=== PATIENT | female | born 1970 | race Caucasian/White ===

== ENCOUNTER 2023-03-21 14:37 | Inpatient (IN) | payer OTHER ==
[2023-03-21 15:09] VITALS: BMI 25.7
[2023-03-21] MEDS ORDERED: IBUPROFEN 400 MG TABLET (FP) PO PRN (17:58)
[2023-03-21] MEDS ORDERED: MAGNESIUM HYDROX 2400MG/30ML ORAL SUSPENSION 30 ML CUP PO PRN (17:58)
[2023-03-21] MEDS ORDERED: BISMUTH SUBSALICYLATE 524 MG/30 ML PO PRN (17:58)
[2023-03-21] MEDS ORDERED: DICYCLOMINE HCL 10 MG CAPSULE PO PRN (17:58)
[2023-03-21] MEDS ORDERED: ONDANSETRON *ODT* 4 MG TABLET SL PRN (17:58)
[2023-03-21] MEDS ORDERED: NICOTINE 10 MG CARTRIDGE (INHALER) IH PRN (17:58)
[2023-03-21] MEDS ORDERED: POLYETHYLENE GLYCOL (HEALTHYLAX) 3350 17 GM PACKET PO PRN (17:58)
[2023-03-21] MEDS ORDERED: NALOXONE HCL (KLOXXADO) 8 MG SPRAY NS PRN (17:58)
[2023-03-21] MEDS ORDERED: BENZOCAINE/MENTHOL (CHLORASEPTIC ) LOZENGE MM PRN (17:58)
[2023-03-21] MEDS ORDERED: LOPERAMIDE HCL 2 MG CAPSULE PO PRN (17:58)
[2023-03-21] MEDS ORDERED: IBUPROFEN 600 MG TABLET (FP) PO PRN (17:58)
[2023-03-21] MEDS ORDERED: NALOXONE HCL 0.4 MG/ML VIAL IM PRN (17:58)
[2023-03-21] MEDS ORDERED: BENZONATATE 200 MG CAPSULE PO PRN (17:58)
[2023-03-21] MEDS ORDERED: MAG HYDROX/AL HYDROX/SIMETH 30 ML UNIT-DOSE CUP PO PRN (17:58)
[2023-03-21] MEDS ORDERED: ACETAMINOPHEN 325 MG TABLET (FP) PO PRN (17:58)
[2023-03-21] MEDS ORDERED: chlordiazePOXIDE HCL 25 MG CAPSULE ONE (18:26)
[2023-03-21] MEDS: chlordiazePOXIDE HCL 25 MG CAPSULE PO PRN (18:28)
[2023-03-21] MEDS: METHOCARBAMOL 500 MG TABLET PO PRN (19:12)
[2023-03-21] MEDS: hydrOXYzine PAMOATE 25 MG CAPSULE (FP) PO PRN ×2 (19:12→22:17)
[2023-03-21] MEDS ORDERED: MELATONIN 5 MG TABLETS PO SCH (22:00)
[2023-03-21] MEDS: chlordiazePOXIDE HCL 25 MG CAPSULE PO SCH (22:17)
[2023-03-21] MEDS: THIAMINE HCL 100 MG TABLET (FP) PO SCH (22:18)
[2023-03-22] MEDS: chlordiazePOXIDE HCL 25 MG CAPSULE PO SCH ×4 (05:57→22:35)
[2023-03-22] MEDS: METHOCARBAMOL 500 MG TABLET PO PRN ×2 (05:58→22:33)
[2023-03-22] MEDS ORDERED: PHENYTOIN NA EXTENDED 100 MG CAPSULE (FP) PO ONE (09:15)
[2023-03-22] MEDS: PRENATAL VITAMINS W/ FOLIC ACID TABLET (FP) PO SCH (10:05)
[2023-03-22 11:57] LABS: HEMATOCRIT 38.6 % (32.4-45.2); HEMOGLOBIN 13.3 GM/dL (10.7-15.3); MCH 31.6 pg (25.7-33.7); MCHC 34.5 g/dl (32.0-36.0); MEAN CELL VOLUME 91.4 fl (80-96); MEAN PLT VOLUME 9.6 fl (7.5-11.1); PLATELET COUNT 274 10^3/uL (134-434); RBC 4.23 M/mm3 (3.60-5.2); RDW 14.1 % (11.6-15.6); WHITE BLOOD COUNT 5.5 K/mm3 (4.0-10.0)
[2023-03-22 11:58] LABS: POTASSIUM 3.6 mmol/L (3.5-5.1)
[2023-03-22 12:04] LABS: ALBUMIN 3.5 g/dl (3.4-5.0); BLOOD UREA NITROGEN 5.9 mg/dL (7-18)
[2023-03-22 12:07] LABS: CREATININE 0.8 mg/dL (0.55-1.3)
[2023-03-22 12:08] LABS: BILIRUBIN,TOTAL 0.7 mg/dL (0.2-1)
[2023-03-22 12:09] LABS: TOT PROT 6.9 g/dl (6.4-8.2)
[2023-03-22] MEDS: cloNIDine HCL 0.1 MG TABLET PO PRN (12:17)
[2023-03-22] MEDS: guaiFENesin 600 MG TABLET.ER (FP) PO PRN ×2 (12:17→22:39)
[2023-03-22] MEDS: PHENYTOIN NA EXTENDED 100 MG CAPSULE (FP) PO SCH ×2 (13:15→22:35)
[2023-03-22] MEDS: THIAMINE HCL 100 MG TABLET (FP) PO SCH (22:33)
[2023-03-22] MEDS: traZODone HCL 100 MG TABLET (FP) PO SCH (22:34)
[2023-03-23] MEDS: METHOCARBAMOL 500 MG TABLET PO PRN ×2 (05:26→22:15)
[2023-03-23] MEDS: chlordiazePOXIDE HCL 25 MG CAPSULE PO SCH ×4 (05:27→22:13)
[2023-03-23] MEDS: PHENYTOIN NA EXTENDED 100 MG CAPSULE (FP) PO SCH ×3 (06:10→22:15)
[2023-03-23] MEDS: guaiFENesin 600 MG TABLET.ER (FP) PO PRN ×2 (10:04→22:17)
[2023-03-23] MEDS: PRENATAL VITAMINS W/ FOLIC ACID TABLET (FP) PO SCH (10:04)
[2023-03-23] MEDS: cloNIDine HCL 0.1 MG TABLET PO PRN ×2 (10:04→17:10)
[2023-03-23] MEDS: chlordiazePOXIDE HCL 25 MG CAPSULE PO PRN (13:35)
[2023-03-23] MEDS ORDERED: PHENYTOIN NA EXTENDED 100 MG CAPSULE (FP) PO ONE (14:54)
[2023-03-23] MEDS: traZODone HCL 100 MG TABLET (FP) PO SCH (22:13)
[2023-03-23] MEDS: THIAMINE HCL 100 MG TABLET (FP) PO SCH (22:13)
[2023-03-23] MEDS: hydrOXYzine PAMOATE 25 MG CAPSULE (FP) PO PRN (22:17)
[2023-03-24] MEDS ORDERED: chlordiazePOXIDE HCL 10 MG CAPSULE PO PRN
[2023-03-24] MEDS: chlordiazePOXIDE HCL 10 MG CAPSULE PO SCH ×4 (05:50→22:18)
[2023-03-24] MEDS: PHENYTOIN NA EXTENDED 100 MG CAPSULE (FP) PO SCH ×3 (05:50→22:18)
[2023-03-24] MEDS: cloNIDine HCL 0.1 MG TABLET PO PRN ×3 (05:52→17:31)
[2023-03-24] MEDS: PRENATAL VITAMINS W/ FOLIC ACID TABLET (FP) PO SCH (10:34)
[2023-03-24] MEDS: hydrOXYzine PAMOATE 25 MG CAPSULE (FP) PO PRN ×2 (13:38→22:18)
[2023-03-24] MEDS: METHOCARBAMOL 500 MG TABLET PO PRN (17:28)
[2023-03-24] MEDS ORDERED: OXYMETAZOLINE 0.05% NASAL SOLUTION 15 ML BOTTLE NS PRN (19:35)
[2023-03-24] MEDS: guaiFENesin 200 MG/10 ML 10 ML UNIT-DOSE CUPS PO PRN (19:44)
[2023-03-24] MEDS: THIAMINE HCL 100 MG TABLET (FP) PO SCH (22:18)
[2023-03-24] MEDS: traZODone HCL 100 MG TABLET (FP) PO SCH (22:18)
[2023-03-25] MEDS: guaiFENesin 200 MG/10 ML 10 ML UNIT-DOSE CUPS PO PRN ×2 (02:07→22:18)
[2023-03-25] MEDS: cloNIDine HCL 0.1 MG TABLET PO PRN ×3 (02:07→22:17)
[2023-03-25] MEDS: chlordiazePOXIDE HCL 10 MG CAPSULE PO SCH ×2 (05:52→17:13)
[2023-03-25] MEDS: PHENYTOIN NA EXTENDED 100 MG CAPSULE (FP) PO SCH ×3 (05:54→22:17)
[2023-03-25] MEDS: METHOCARBAMOL 500 MG TABLET PO PRN ×3 (05:56→22:17)
[2023-03-25] MEDS: PRENATAL VITAMINS W/ FOLIC ACID TABLET (FP) PO SCH (10:23)
[2023-03-25] MEDS: hydrOXYzine PAMOATE 25 MG CAPSULE (FP) PO PRN ×2 (10:24→17:13)
[2023-03-25] MEDS: traZODone HCL 100 MG TABLET (FP) PO SCH (22:17)
[2023-03-25] MEDS: THIAMINE HCL 100 MG TABLET (FP) PO SCH (22:17)
[2023-03-26] MEDS ORDERED: chlordiazePOXIDE HCL 10 MG CAPSULE PO ONE (05:00)
[2023-03-26] MEDS: PHENYTOIN NA EXTENDED 100 MG CAPSULE (FP) PO SCH ×2 (05:11→13:47)
[2023-03-26] MEDS: hydrOXYzine PAMOATE 25 MG CAPSULE (FP) PO PRN ×2 (05:11→13:48)
[2023-03-26] MEDS: cloNIDine HCL 0.1 MG TABLET PO PRN ×2 (09:39→17:15)
[2023-03-26] MEDS: PRENATAL VITAMINS W/ FOLIC ACID TABLET (FP) PO SCH (09:40)
[2023-03-26] MEDS: METHOCARBAMOL 500 MG TABLET PO PRN (13:47)
[2023-03-26 14:02] VITALS: RESP 18; TEMP 97.3
[2023-03-26 18:19] VITALS: BP 114/71; PULSE 97
== END 2023-03-26 18:33 | disposition other institution (70) | DRG 774 ==
LOC: YASAS 14:37 → Y6N 18:03
PROVIDERS: ADMIT Allergy & Immunology; ATTEND Surgery
PROC: HZ2ZZZZ Detoxification Services for Substance Abuse Treatment (ICD-10-PCS; principal; 2023-03-21)
DX: F10.230 Alcohol dependence with withdrawal, uncomplicated (principal); F14.10 Cocaine abuse, uncomplicated; F12.10 Cannabis abuse, uncomplicated; F19.282 Other psychoactive substance dependence with psychoactive substance-induced sleep disorder; F19.280 Other psychoactive substance dependence with psychoactive substance-induced anxiety disorder; F19.24 Other psychoactive substance dependence with psychoactive substance-induced mood disorder; F32.A Depression, unspecified; F41.8 Other specified anxiety disorders; G40.909 Epilepsy, unspecified, not intractable, without status epilepticus; I10 Essential (primary) hypertension; Z91.410 Personal history of adult physical and sexual abuse; Z87.891 Personal history of nicotine dependence
CPT/HCPCS: 36415; 80053; 80185; 81025; 85027; 86780; 87635

== ENCOUNTER 2023-03-26 19:29 | Inpatient (IN) | payer OTHER ==
[~2023-03-26 19:29] MED LIST: BENZOCAINE/MENTHOL (CHLORASEPTIC ) LOZENGE MM PRN; BENZONATATE 200 MG CAPSULE PO PRN; LOPERAMIDE HCL 2 MG CAPSULE PO PRN; MAG HYDROX/AL HYDROX/SIMETH 30 ML UNIT-DOSE CUP PO PRN; MAGNESIUM HYDROX 2400MG/30ML ORAL SUSPENSION 30 ML CUP PO PRN; POLYETHYLENE GLYCOL (HEALTHYLAX) 3350 17 GM PACKET PO PRN; guaiFENesin 600 MG TABLET.ER (FP) PO PRN
[2023-03-26] MEDS: PHENYTOIN NA EXTENDED 100 MG CAPSULE (FP) PO SCH ×2 (19:54→21:39)
[2023-03-26] MEDS: METHOCARBAMOL 500 MG TABLET PO PRN (21:39)
[2023-03-26] MEDS: MELATONIN 5 MG TABLETS PO SCH (21:39)
[2023-03-26] MEDS: traZODone HCL 100 MG TABLET (FP) PO SCH (21:39)
[2023-03-26] MEDS: hydrOXYzine PAMOATE 25 MG CAPSULE (FP) PO PRN (21:40)
[2023-03-26] MEDS: THIAMINE HCL 100 MG TABLET (FP) PO SCH (21:40)
[2023-03-27] MEDS: PHENYTOIN NA EXTENDED 100 MG CAPSULE (FP) PO SCH ×3 (06:30→21:21)
[2023-03-27] MEDS: IBUPROFEN 400 MG TABLET (FP) PO PRN ×2 (06:30→14:22)
[2023-03-27] MEDS: hydrOXYzine PAMOATE 25 MG CAPSULE (FP) PO PRN (06:30)
[2023-03-27] MEDS: PRENATAL VITAMINS W/ FOLIC ACID TABLET (FP) PO SCH (10:09)
[2023-03-27] MEDS ORDERED: GABAPENTIN 100 MG CAPSULE PO ONE (10:30)
[2023-03-27] MEDS: hydrOXYzine PAMOATE 50 MG CAPSULE (FP) PO PRN ×2 (10:31→17:45)
[2023-03-27] MEDS ORDERED: FLU VACC QS2022-23(6MOS UP)/PF 60 MCG/0.5 ML SYRINGE IM ONE (12:00)
[2023-03-27] MEDS ORDERED: PNEUMOC 20-VAL CONJ-DIP CRM/PF 0.5 ML SYRINGE IM ONE (12:09)
[2023-03-27] MEDS ORDERED: ALBUTEROL SO4 HFA INHALER IH PRN (13:14)
[2023-03-27] MEDS ORDERED: AZITHROMYCIN 250 MG TABLET PO ONE (13:45)
[2023-03-27] MEDS: GABAPENTIN 100 MG CAPSULE PO SCH ×2 (14:20→21:21)
[2023-03-27] MEDS: THIAMINE HCL 100 MG TABLET (FP) PO SCH (21:21)
[2023-03-27] MEDS: traZODone HCL 100 MG TABLET (FP) PO SCH (21:21)
[2023-03-27] MEDS: MELATONIN 5 MG TABLETS PO SCH (21:21)
[2023-03-28] MEDS: GABAPENTIN 100 MG CAPSULE PO SCH ×3 (06:33→21:10)
[2023-03-28] MEDS: PHENYTOIN NA EXTENDED 100 MG CAPSULE (FP) PO SCH ×3 (06:33→21:10)
[2023-03-28] MEDS: IBUPROFEN 400 MG TABLET (FP) PO PRN (06:35)
[2023-03-28] MEDS: hydrOXYzine PAMOATE 50 MG CAPSULE (FP) PO PRN ×2 (08:43→16:41)
[2023-03-28] MEDS: AZITHROMYCIN 250 MG TABLET PO SCH (09:50)
[2023-03-28] MEDS: PRENATAL VITAMINS W/ FOLIC ACID TABLET (FP) PO SCH (09:50)
[2023-03-28 11:37] LABS: BASO % 0.5 % (0-2.0); EOS % 3.8 % (0-4.5); HEMATOCRIT 37.6 % (32.4-45.2); HEMOGLOBIN 12.9 GM/dL (10.7-15.3); LYMPH % 16.2 % (8-40); MCH 31.7 pg (25.7-33.7); MCHC 34.4 g/dl (32.0-36.0); MEAN PLT VOLUME 11.1 fl (7.5-11.1); MONO % 10.4 % (3.8-10.2); NEUT % 69.1 % (42.8-82.8); PLATELET COUNT 149 10^3/uL (134-434); RBC 4.08 M/mm3 (3.60-5.2); WHITE BLOOD COUNT 9.1 K/mm3 (4.0-10.0)
[2023-03-28 13:01] LABS: POTASSIUM 4.3 mmol/L (3.5-5.1)
[2023-03-28 13:06] LABS: CALCIUM 9.3 mg/dL (8.5-10.1)
[2023-03-28 13:07] LABS: ALBUMIN 3.8 g/dl (3.4-5.0); BLOOD UREA NITROGEN 10.7 mg/dL (7-18)
[2023-03-28 13:09] LABS: CREATININE 0.9 mg/dL (0.55-1.3)
[2023-03-28 13:11] LABS: BILIRUBIN,TOTAL 0.2 mg/dL (0.2-1); TOT PROT 7.4 g/dl (6.4-8.2)
[2023-03-28] MEDS: COLLOIDAL OATMEAL 1 BAR EACH TP PRN (14:36)
[2023-03-28] MEDS: AMMONIUM LACTATE 12% LOTION 225 GM BOTTLE TP PRN (14:37)
[2023-03-28] MEDS: LACTULOSE 20 GM/30 ML UDC (FOR ORAL USE ONLY) PO SCH ×2 (16:42→21:09)
[2023-03-28] MEDS: MELATONIN 5 MG TABLETS PO SCH (21:10)
[2023-03-28] MEDS: THIAMINE HCL 100 MG TABLET (FP) PO SCH (21:10)
[2023-03-28] MEDS: traZODone HCL 100 MG TABLET (FP) PO SCH (21:10)
[2023-03-29] MEDS: PHENYTOIN NA EXTENDED 100 MG CAPSULE (FP) PO SCH ×3 (06:18→21:34)
[2023-03-29] MEDS: GABAPENTIN 100 MG CAPSULE PO SCH ×3 (06:19→21:34)
[2023-03-29] MEDS: LACTULOSE 20 GM/30 ML UDC (FOR ORAL USE ONLY) PO SCH ×3 (06:19→21:34)
[2023-03-29] MEDS: AZITHROMYCIN 250 MG TABLET PO SCH (09:17)
[2023-03-29] MEDS: PRENATAL VITAMINS W/ FOLIC ACID TABLET (FP) PO SCH (09:17)
[2023-03-29] MEDS: hydrOXYzine PAMOATE 50 MG CAPSULE (FP) PO PRN (09:19)
[2023-03-29] MEDS: METHOCARBAMOL 500 MG TABLET PO PRN (09:19)
[2023-03-29] MEDS: traZODone HCL 100 MG TABLET (FP) PO SCH (21:34)
[2023-03-29] MEDS: MELATONIN 5 MG TABLETS PO SCH (21:34)
[2023-03-29] MEDS: THIAMINE HCL 100 MG TABLET (FP) PO SCH (21:34)
[2023-03-30] MEDS: GABAPENTIN 100 MG CAPSULE PO SCH ×2 (06:09→14:27)
[2023-03-30] MEDS: LACTULOSE 20 GM/30 ML UDC (FOR ORAL USE ONLY) PO SCH ×3 (06:09→21:41)
[2023-03-30] MEDS: PHENYTOIN NA EXTENDED 100 MG CAPSULE (FP) PO SCH ×3 (06:10→21:21)
[2023-03-30] MEDS: IBUPROFEN 600 MG TABLET (FP) PO PRN (06:11)
[2023-03-30] MEDS: METHOCARBAMOL 500 MG TABLET PO PRN ×2 (06:11→14:29)
[2023-03-30] MEDS: PRENATAL VITAMINS W/ FOLIC ACID TABLET (FP) PO SCH (09:55)
[2023-03-30] MEDS: hydrOXYzine PAMOATE 50 MG CAPSULE (FP) PO PRN (09:57)
[2023-03-30] MEDS: AZITHROMYCIN 250 MG TABLET PO SCH (09:57)
[2023-03-30] MEDS: GABAPENTIN 300 MG CAPSULE PO SCH (21:21)
[2023-03-30] MEDS: MELATONIN 5 MG TABLETS PO SCH (21:21)
[2023-03-30] MEDS: traZODone HCL 100 MG TABLET (FP) PO SCH (21:21)
[2023-03-30] MEDS: THIAMINE HCL 100 MG TABLET (FP) PO SCH (21:21)
[2023-03-31] MEDS: METHOCARBAMOL 500 MG TABLET PO PRN ×2 (06:14→13:26)
[2023-03-31] MEDS: LACTULOSE 20 GM/30 ML UDC (FOR ORAL USE ONLY) PO SCH ×3 (06:14→21:21)
[2023-03-31] MEDS: PHENYTOIN NA EXTENDED 100 MG CAPSULE (FP) PO SCH ×3 (06:15→21:22)
[2023-03-31] MEDS: GABAPENTIN 300 MG CAPSULE PO SCH ×3 (06:15→21:22)
[2023-03-31] MEDS: AZITHROMYCIN 250 MG TABLET PO SCH (09:43)
[2023-03-31] MEDS: PRENATAL VITAMINS W/ FOLIC ACID TABLET (FP) PO SCH (09:43)
[2023-03-31] MEDS: hydrOXYzine PAMOATE 50 MG CAPSULE (FP) PO PRN (09:44)
[2023-03-31] MEDS: MELATONIN 5 MG TABLETS PO SCH (21:22)
[2023-03-31] MEDS: traZODone HCL 100 MG TABLET (FP) PO SCH (21:22)
[2023-03-31] MEDS: THIAMINE HCL 100 MG TABLET (FP) PO SCH (22:29)
[2023-04-01] MEDS: LACTULOSE 20 GM/30 ML UDC (FOR ORAL USE ONLY) PO SCH ×3 (06:16→22:03)
[2023-04-01] MEDS: PHENYTOIN NA EXTENDED 100 MG CAPSULE (FP) PO SCH ×3 (06:16→21:56)
[2023-04-01] MEDS: METHOCARBAMOL 500 MG TABLET PO PRN (06:16)
[2023-04-01] MEDS: GABAPENTIN 300 MG CAPSULE PO SCH ×3 (06:16→21:56)
[2023-04-01] MEDS: AMMONIUM LACTATE 12% LOTION 225 GM BOTTLE TP PRN (06:18)
[2023-04-01] MEDS: COLLOIDAL OATMEAL 1 BAR EACH TP PRN (09:41)
[2023-04-01] MEDS: PRENATAL VITAMINS W/ FOLIC ACID TABLET (FP) PO SCH (09:41)
[2023-04-01] MEDS: hydrOXYzine PAMOATE 50 MG CAPSULE (FP) PO PRN ×2 (09:43→21:57)
[2023-04-01] MEDS: IBUPROFEN 400 MG TABLET (FP) PO PRN (09:43)
[2023-04-01] MEDS: IBUPROFEN 600 MG TABLET (FP) PO PRN (16:49)
[2023-04-01] MEDS: MELATONIN 5 MG TABLETS PO SCH (21:56)
[2023-04-01] MEDS: THIAMINE HCL 100 MG TABLET (FP) PO SCH (21:56)
[2023-04-01] MEDS: traZODone HCL 100 MG TABLET (FP) PO SCH (21:56)
[2023-04-02] MEDS: hydrOXYzine PAMOATE 50 MG CAPSULE (FP) PO PRN ×2 (06:07→13:42)
[2023-04-02] MEDS: LACTULOSE 20 GM/30 ML UDC (FOR ORAL USE ONLY) PO SCH ×3 (06:07→21:44)
[2023-04-02] MEDS: GABAPENTIN 300 MG CAPSULE PO SCH ×3 (06:08→21:30)
[2023-04-02] MEDS: PHENYTOIN NA EXTENDED 100 MG CAPSULE (FP) PO SCH ×3 (06:08→21:30)
[2023-04-02] MEDS: PRENATAL VITAMINS W/ FOLIC ACID TABLET (FP) PO SCH (09:55)
[2023-04-02] MEDS: MELATONIN 5 MG TABLETS PO SCH (21:30)
[2023-04-02] MEDS: THIAMINE HCL 100 MG TABLET (FP) PO SCH (21:30)
[2023-04-02] MEDS: traZODone HCL 100 MG TABLET (FP) PO SCH (21:30)
[2023-04-02] MEDS: METHOCARBAMOL 500 MG TABLET PO PRN (21:32)
[2023-04-03] MEDS: METHOCARBAMOL 500 MG TABLET PO PRN ×3 (06:56→21:35)
[2023-04-03] MEDS: GABAPENTIN 300 MG CAPSULE PO SCH ×3 (06:57→21:35)
[2023-04-03] MEDS: PHENYTOIN NA EXTENDED 100 MG CAPSULE (FP) PO SCH ×3 (06:57→21:35)
[2023-04-03] MEDS: LACTULOSE 20 GM/30 ML UDC (FOR ORAL USE ONLY) PO SCH ×3 (06:57→21:36)
[2023-04-03] MEDS: hydrOXYzine PAMOATE 50 MG CAPSULE (FP) PO PRN (10:18)
[2023-04-03] MEDS: PRENATAL VITAMINS W/ FOLIC ACID TABLET (FP) PO SCH (10:18)
[2023-04-03] MEDS: traZODone HCL 100 MG TABLET (FP) PO SCH (21:35)
[2023-04-03] MEDS: MELATONIN 5 MG TABLETS PO SCH (21:36)
[2023-04-03] MEDS: THIAMINE HCL 100 MG TABLET (FP) PO SCH (21:36)
[2023-04-04] MEDS: METHOCARBAMOL 500 MG TABLET PO PRN ×2 (06:04→21:54)
[2023-04-04] MEDS: LACTULOSE 20 GM/30 ML UDC (FOR ORAL USE ONLY) PO SCH ×3 (06:04→21:55)
[2023-04-04] MEDS: PHENYTOIN NA EXTENDED 100 MG CAPSULE (FP) PO SCH ×3 (06:05→21:55)
[2023-04-04] MEDS: GABAPENTIN 300 MG CAPSULE PO SCH ×3 (06:05→21:55)
[2023-04-04] MEDS: hydrOXYzine PAMOATE 50 MG CAPSULE (FP) PO PRN ×2 (07:02→15:47)
[2023-04-04] MEDS: PRENATAL VITAMINS W/ FOLIC ACID TABLET (FP) PO SCH (09:46)
[2023-04-04 11:27] LABS: INR 1.03 (0.83-1.09); PROTHROMBIN TIME (PATIENT) 11.9 SEC (9.7-13.0)
[2023-04-04 11:28] LABS: POTASSIUM 4.5 mmol/L (3.5-5.1)
[2023-04-04 11:34] LABS: ALBUMIN 3.7 g/dl (3.4-5.0); BLOOD UREA NITROGEN 8.7 mg/dL (7-18)
[2023-04-04 11:36] LABS: CALCIUM 9.5 mg/dL (8.5-10.1)
[2023-04-04 11:37] LABS: CREATININE 0.9 mg/dL (0.55-1.3)
[2023-04-04 11:38] LABS: TOT PROT 7.3 g/dl (6.4-8.2)
[2023-04-04 11:39] LABS: BILIRUBIN,TOTAL 0.3 mg/dL (0.2-1)
[2023-04-04] MEDS ORDERED: PHENYTOIN NA EXTENDED 100 MG CAPSULE (FP) PO ONE (15:11)
[2023-04-04] MEDS: MELATONIN 5 MG TABLETS PO SCH (21:54)
[2023-04-04] MEDS: THIAMINE HCL 100 MG TABLET (FP) PO SCH (21:55)
[2023-04-04] MEDS: traZODone HCL 100 MG TABLET (FP) PO SCH (21:55)
[2023-04-05] MEDS: GABAPENTIN 300 MG CAPSULE PO SCH ×3 (06:45→21:38)
[2023-04-05] MEDS: METHOCARBAMOL 500 MG TABLET PO PRN ×2 (06:45→17:04)
[2023-04-05] MEDS: PHENYTOIN NA EXTENDED 100 MG CAPSULE (FP) PO SCH ×3 (06:45→21:39)
[2023-04-05] MEDS: LACTULOSE 20 GM/30 ML UDC (FOR ORAL USE ONLY) PO SCH ×3 (06:45→21:38)
[2023-04-05] MEDS: PRENATAL VITAMINS W/ FOLIC ACID TABLET (FP) PO SCH (09:43)
[2023-04-05] MEDS: hydrOXYzine PAMOATE 50 MG CAPSULE (FP) PO PRN (13:47)
[2023-04-05] MEDS: MELATONIN 5 MG TABLETS PO SCH (21:38)
[2023-04-05] MEDS: traZODone HCL 100 MG TABLET (FP) PO SCH (21:39)
[2023-04-05] MEDS: THIAMINE HCL 100 MG TABLET (FP) PO SCH (21:39)
[2023-04-06] MEDS: METHOCARBAMOL 500 MG TABLET PO PRN ×2 (06:35→15:50)
[2023-04-06] MEDS: hydrOXYzine PAMOATE 50 MG CAPSULE (FP) PO PRN ×2 (06:35→14:32)
[2023-04-06] MEDS: GABAPENTIN 300 MG CAPSULE PO SCH ×3 (06:35→21:27)
[2023-04-06] MEDS: PHENYTOIN NA EXTENDED 100 MG CAPSULE (FP) PO SCH ×3 (06:35→21:27)
[2023-04-06] MEDS: LACTULOSE 20 GM/30 ML UDC (FOR ORAL USE ONLY) PO SCH ×3 (06:36→21:27)
[2023-04-06 07:33] VITALS: RESP 18
[2023-04-06] MEDS: PRENATAL VITAMINS W/ FOLIC ACID TABLET (FP) PO SCH (09:53)
[2023-04-06] MEDS: MELATONIN 5 MG TABLETS PO SCH (21:27)
[2023-04-06] MEDS: traZODone HCL 100 MG TABLET (FP) PO SCH (21:27)
[2023-04-06] MEDS: THIAMINE HCL 100 MG TABLET (FP) PO SCH (21:27)
[2023-04-07] MEDS: hydrOXYzine PAMOATE 50 MG CAPSULE (FP) PO PRN ×2 (06:35→13:13)
[2023-04-07] MEDS: METHOCARBAMOL 500 MG TABLET PO PRN (06:35)
[2023-04-07] MEDS: GABAPENTIN 300 MG CAPSULE PO SCH ×3 (06:35→21:41)
[2023-04-07] MEDS: PHENYTOIN NA EXTENDED 100 MG CAPSULE (FP) PO SCH ×3 (06:35→21:14)
[2023-04-07] MEDS: LACTULOSE 20 GM/30 ML UDC (FOR ORAL USE ONLY) PO SCH ×3 (06:36→21:15)
[2023-04-07] MEDS: PRENATAL VITAMINS W/ FOLIC ACID TABLET (FP) PO SCH (09:58)
[2023-04-07] MEDS: MELATONIN 5 MG TABLETS PO SCH (21:14)
[2023-04-07] MEDS: traZODone HCL 100 MG TABLET (FP) PO SCH (21:14)
[2023-04-07] MEDS: THIAMINE HCL 100 MG TABLET (FP) PO SCH (21:14)
[2023-04-08] MEDS: hydrOXYzine PAMOATE 50 MG CAPSULE (FP) PO PRN ×2 (06:16→14:35)
[2023-04-08] MEDS: METHOCARBAMOL 500 MG TABLET PO PRN ×3 (06:16→21:26)
[2023-04-08] MEDS: GABAPENTIN 300 MG CAPSULE PO SCH ×3 (06:16→21:26)
[2023-04-08] MEDS: PHENYTOIN NA EXTENDED 100 MG CAPSULE (FP) PO SCH ×3 (06:16→21:26)
[2023-04-08] MEDS: LACTULOSE 20 GM/30 ML UDC (FOR ORAL USE ONLY) PO SCH ×3 (06:16→21:52)
[2023-04-08] MEDS: PRENATAL VITAMINS W/ FOLIC ACID TABLET (FP) PO SCH (09:47)
[2023-04-08] MEDS: THIAMINE HCL 100 MG TABLET (FP) PO SCH (21:26)
[2023-04-08] MEDS: traZODone HCL 100 MG TABLET (FP) PO SCH (21:26)
[2023-04-08] MEDS: MELATONIN 5 MG TABLETS PO SCH (21:26)
[2023-04-09] MEDS: GABAPENTIN 300 MG CAPSULE PO SCH ×3 (06:05→21:31)
[2023-04-09] MEDS: LACTULOSE 20 GM/30 ML UDC (FOR ORAL USE ONLY) PO SCH ×3 (06:05→21:32)
[2023-04-09] MEDS: PHENYTOIN NA EXTENDED 100 MG CAPSULE (FP) PO SCH ×3 (06:05→21:31)
[2023-04-09] MEDS: hydrOXYzine PAMOATE 50 MG CAPSULE (FP) PO PRN ×2 (06:05→14:15)
[2023-04-09] MEDS: METHOCARBAMOL 500 MG TABLET PO PRN ×2 (06:05→17:40)
[2023-04-09] MEDS: PRENATAL VITAMINS W/ FOLIC ACID TABLET (FP) PO SCH (09:57)
[2023-04-09] MEDS: COLLOIDAL OATMEAL 1 BAR EACH TP PRN (13:12)
[2023-04-09] MEDS: THIAMINE HCL 100 MG TABLET (FP) PO SCH (21:31)
[2023-04-09] MEDS: MELATONIN 5 MG TABLETS PO SCH (21:31)
[2023-04-09] MEDS: traZODone HCL 100 MG TABLET (FP) PO SCH (21:31)
[2023-04-10] MEDS: PHENYTOIN NA EXTENDED 100 MG CAPSULE (FP) PO SCH (06:47)
[2023-04-10] MEDS: hydrOXYzine PAMOATE 50 MG CAPSULE (FP) PO PRN (06:47)
[2023-04-10] MEDS: LACTULOSE 20 GM/30 ML UDC (FOR ORAL USE ONLY) PO SCH (06:47)
[2023-04-10] MEDS: GABAPENTIN 300 MG CAPSULE PO SCH (06:48)
[2023-04-10] MEDS: METHOCARBAMOL 500 MG TABLET PO PRN (06:48)
[2023-04-10 07:17] VITALS: BP 122/71; PULSE 81; TEMP 97.5
[2023-04-10] MEDS: PRENATAL VITAMINS W/ FOLIC ACID TABLET (FP) PO SCH (10:01)
== END 2023-04-10 10:20 | disposition other institution (70) | DRG 772 ==
LOC: YASAS 19:29 → Y5N 19:30
PROVIDERS: ADMIT Allergy & Immunology; ATTEND Psychiatry & Neurology Pain Medicine
PROC: HZ42ZZZ Group Counseling for Substance Abuse Treatment, Cognitive-Behavioral (ICD-10-PCS; principal; 2023-03-26)
DX: F10.20 Alcohol dependence, uncomplicated (principal); F14.20 Cocaine dependence, uncomplicated; F12.20 Cannabis dependence, uncomplicated; F41.9 Anxiety disorder, unspecified; F32.A Depression, unspecified; E72.20 Disorder of urea cycle metabolism, unspecified; I10 Essential (primary) hypertension; R56.9 Unspecified convulsions; M54.50 Low back pain, unspecified; G89.29 Other chronic pain; R06.2 Wheezing; R05.9 Cough, unspecified; Z87.891 Personal history of nicotine dependence
CPT/HCPCS: 36415; 71046-TC-FY; 80053; 80185; 82140; 85025; 85610; 90677; G0008; Q2036

== ENCOUNTER 2023-11-26 17:49 | Inpatient (IN) | payer OTHER ==
[2023-11-26 19:03] VITALS: BMI 24.7
[2023-11-26] MEDS ORDERED: P-EPHED 60MG/TRIPROLIDI 2.5MG TABLET PO PRN (22:32)
[2023-11-26] MEDS ORDERED: IBUPROFEN 600 MG TABLET (FP) PO PRN (22:32)
[2023-11-26] MEDS ORDERED: NICOTINE POLACRILEX 2 MG GUM BUC PRN (22:32)
[2023-11-26] MEDS ORDERED: POLYETHYLENE GLYCOL (HEALTHYLAX) 3350 17 GM PACKET PO PRN (22:32)
[2023-11-26] MEDS ORDERED: guaiFENesin 600 MG TABLET.ER (FP) PO PRN (22:32)
[2023-11-26] MEDS ORDERED: ACETAMINOPHEN 325 MG TABLET (FP) PO PRN (22:32)
[2023-11-26] MEDS ORDERED: MAG HYDROX/AL HYDROX/SIMETH 30 ML UNIT-DOSE CUP PO PRN (22:32)
[2023-11-26] MEDS ORDERED: ONDANSETRON *ODT* 4 MG TABLET SL PRN (22:32)
[2023-11-26] MEDS ORDERED: IBUPROFEN 400 MG TABLET (FP) PO PRN (22:32)
[2023-11-26] MEDS ORDERED: BISMUTH SUBSALICYLATE 524 MG/30 ML PO PRN (22:32)
[2023-11-26] MEDS ORDERED: MAGNESIUM HYDROX 2400MG/30ML ORAL SUSPENSION 30 ML CUP PO PRN (22:32)
[2023-11-26] MEDS ORDERED: LOPERAMIDE HCL 2 MG CAPSULE PO PRN (22:32)
[2023-11-26] MEDS ORDERED: DICYCLOMINE HCL 10 MG CAPSULE PO PRN (22:32)
[2023-11-26] MEDS ORDERED: BENZOCAINE/MENTHOL (CHLORASEPTIC ) LOZENGE MM PRN (22:32)
[2023-11-26] MEDS ORDERED: BENZONATATE 200 MG CAPSULE PO PRN (22:32)
[2023-11-26] MEDS: diazePAM 5 MG TABLET PO PRN (23:57)
[2023-11-26] MEDS: levETIRAcetam 500 MG TABLET (FP) PO SCH (23:58)
[2023-11-27] MEDS: diazePAM 5 MG TABLET PO SCH (05:23)
[2023-11-27] MEDS: PRENATAL VITAMINS W/ FOLIC ACID TABLET (FP) PO SCH (10:11)
[2023-11-27] MEDS: FOLIC ACID 1 MG TABLET (FP) PO SCH (10:14)
[2023-11-27] MEDS: hydrOXYzine PAMOATE 25 MG CAPSULE (FP) PO PRN (10:14)
[2023-11-27] MEDS: METHOCARBAMOL 500 MG TABLET PO PRN (10:14)
[2023-11-27] MEDS: QUEtiapine FUMARATE 200 MG TABLET PO ONE (12:42)
[2023-11-27] MEDS: QUEtiapine FUMARATE 200 MG TABLET PO SCH (12:44)
[2023-11-27] MEDS: traZODone HCL 100 MG TABLET (FP) PO SCH (21:58)
[2023-11-27] MEDS: THIAMINE HCL 100 MG TABLET (FP) PO SCH (21:59)
[2023-11-27] MEDS ORDERED: MELATONIN 5 MG TABLETS PO SCH (22:00)
[2023-11-28] MEDS: diazePAM 5 MG TABLET PO ONE (05:20)
[2023-11-28 09:57] VITALS: RESP 20
[2023-11-28 13:36] VITALS: BP 122/74; PULSE 116; TEMP 97.5
== END 2023-11-28 15:00 | disposition other institution (70) | DRG 774 ==
LOC: YASAS 17:49 → Y6N 23:00
PROVIDERS: ADMIT Allergy & Immunology; ATTEND Surgery
PROC: HZ2ZZZZ Detoxification Services for Substance Abuse Treatment (ICD-10-PCS; principal; 2023-11-26)
DX: F10.230 Alcohol dependence with withdrawal, uncomplicated (principal); F14.20 Cocaine dependence, uncomplicated; F25.1 Schizoaffective disorder, depressive type; F19.280 Other psychoactive substance dependence with psychoactive substance-induced anxiety disorder; F19.282 Other psychoactive substance dependence with psychoactive substance-induced sleep disorder; F19.24 Other psychoactive substance dependence with psychoactive substance-induced mood disorder; F33.1 Major depressive disorder, recurrent, moderate; G40.909 Epilepsy, unspecified, not intractable, without status epilepticus; I10 Essential (primary) hypertension; M54.50 Low back pain, unspecified; G89.29 Other chronic pain; Z56.0 Unemployment, unspecified; Z59.00 Homelessness unspecified
CPT/HCPCS: 81025; 87635; 93005; 93010

== ENCOUNTER 2023-11-28 15:18 | Inpatient (IN) | payer OTHER ==
[2023-11-28] MEDS ORDERED: IBUPROFEN 600 MG TABLET (FP) PO PRN (16:01)
[2023-11-28] MEDS ORDERED: LOPERAMIDE HCL 2 MG CAPSULE PO PRN (16:01)
[2023-11-28] MEDS ORDERED: guaiFENesin 600 MG TABLET.ER (FP) PO PRN (16:01)
[2023-11-28] MEDS ORDERED: NALOXONE HCL (KLOXXADO) 8 MG SPRAY NS PRN (16:01)
[2023-11-28] MEDS ORDERED: AMMONIUM LACTATE 12% LOTION 225 GM BOTTLE TP PRN (16:01)
[2023-11-28] MEDS ORDERED: BENZOCAINE/MENTHOL (CHLORASEPTIC ) LOZENGE MM PRN (16:01)
[2023-11-28] MEDS ORDERED: NALOXONE HCL 0.4 MG/ML VIAL IVPUSH PRN (16:01)
[2023-11-28] MEDS ORDERED: BENZONATATE 200 MG CAPSULE PO PRN (16:01)
[2023-11-28] MEDS ORDERED: ACETAMINOPHEN 325 MG TABLET (FP) PO PRN (16:01)
[2023-11-28] MEDS ORDERED: IBUPROFEN 400 MG TABLET (FP) PO PRN (16:01)
[2023-11-28] MEDS: THIAMINE HCL 100 MG TABLET (FP) PO SCH (21:19)
[2023-11-28] MEDS: levETIRAcetam 500 MG TABLET (FP) PO SCH (21:19)
[2023-11-28] MEDS: GABAPENTIN 300 MG CAPSULE PO SCH (21:19)
[2023-11-28] MEDS: MELATONIN 5 MG TABLETS PO SCH (21:19)
[2023-11-29] MEDS: hydrOXYzine PAMOATE 25 MG CAPSULE (FP) PO PRN (05:44)
[2023-11-29] MEDS: DIVALPROEX SODIUM 500 MG TABLET E.C. PO SCH (09:48)
[2023-11-29] MEDS: PRENATAL VITAMINS W/ FOLIC ACID TABLET (FP) PO SCH (09:48)
[2023-11-29] MEDS: BACLOFEN 10 MG TABLET (FP) PO PRN (09:49)
[2023-11-29] MEDS: PNEUMOC 20-VAL CONJ-DIP CRM/PF 0.5 ML SYRINGE IM ONE (09:53)
[2023-11-29] MEDS ORDERED: GABAPENTIN 300 MG CAPSULE PO SCH (10:00)
[2023-11-29] MEDS: QUEtiapine FUMARATE 200 MG TABLET PO SCH (11:37)
[2023-11-30 07:09] VITALS: RESP 18
[2023-11-30] MEDS: LACTULOSE 20 GM/30 ML UDC (FOR ORAL USE ONLY) PO SCH (13:17)
[2023-12-01] MEDS: FLU VACCINE (FLULAVAL) PF 60 MCG/0.5 ML SYRINGE 2023-2024 IM ONE (11:08)
[2023-12-01] MEDS ORDERED: PNEUMOC 20-VAL CONJ-DIP CRM/PF 0.5 ML SYRINGE IM ONE (12:00)
[2023-12-01 13:42] LABS: ALBUMIN 3.4 g/dl (3.4-5.0); CALCIUM 9.8 mg/dL (8.5-10.1)
[2023-12-01 13:43] LABS: BLOOD UREA NITROGEN 15.8 mg/dL (7-18)
[2023-12-01 13:45] LABS: CREATININE 0.9 mg/dL (0.55-1.3)
[2023-12-01 13:47] LABS: BILIRUBIN,TOTAL 0.2 mg/dL (0.2-1); TOT PROT 6.9 g/dl (6.4-8.2)
[2023-12-01 13:49] LABS: INR 0.88 (0.83-1.09); PROTHROMBIN TIME (PATIENT) 10.2 SEC (9.7-13.0)
[2023-12-01 13:54] LABS: HEMATOCRIT 36.2 % (32.4-45.2); MCH 28.9 pg (25.7-33.7); MCHC 33.2 g/dl (32.0-36.0); MEAN CELL VOLUME 87.1 fl (80-96); MEAN PLT VOLUME 9.7 fl (7.5-11.1); PLATELET COUNT 280 10^3/uL (134-434); RBC 4.16 M/mm3 (3.60-5.2); RDW 15.7 % (11.6-15.6); WHITE BLOOD COUNT 12.5 K/mm3 (4.0-10.0)
[2023-12-01 14:22] LABS: ANISOCYTOSIS 0; MACROCYTOSIS 0
[2023-12-01] MEDS: POLYETHYLENE GLYCOL (HEALTHYLAX) 3350 17 GM PACKET PO PRN (17:37)
[2023-12-03] MEDS: MAGNESIUM HYDROX 2400MG/30ML ORAL SUSPENSION 30 ML CUP PO PRN (13:10)
[2023-12-03] MEDS ORDERED: PNEUMOCOCCAL 23 VACCINE 0.5 ML VIAL IM ONE (15:13)
[2023-12-03] MEDS: DOCUSATE SODIUM 100 MG CAPSULE (FP) PO SCH (21:35)
[2023-12-04] MEDS: MAG HYDROX/AL HYDROX/SIMETH 30 ML UNIT-DOSE CUP PO PRN (20:16)
[2023-12-05 07:14] VITALS: BP 111/60; PULSE 87; TEMP 97.6
== END 2023-12-05 10:30 | disposition home or self-care (01) | DRG 772 ==
LOC: YASAS 15:18 → Y5N 15:21
PROVIDERS: ADMIT Allergy & Immunology; ATTEND Psychiatry & Neurology Pain Medicine
PROC: HZ42ZZZ Group Counseling for Substance Abuse Treatment, Cognitive-Behavioral (ICD-10-PCS; principal; 2023-11-28)
DX: F10.20 Alcohol dependence, uncomplicated (principal); F14.20 Cocaine dependence, uncomplicated; F25.1 Schizoaffective disorder, depressive type; F32.A Depression, unspecified; F41.9 Anxiety disorder, unspecified; E72.20 Disorder of urea cycle metabolism, unspecified; I10 Essential (primary) hypertension; K59.00 Constipation, unspecified; R56.9 Unspecified convulsions; Z59.00 Homelessness unspecified
CPT/HCPCS: 36415; 80053; 80164; 80177; 82140; 85025; 85610; 86803; 90686; G0008; J0475

== ENCOUNTER 2024-03-22 13:14 | Inpatient (IN) | payer OTHER ==
[2024-03-22 14:57] VITALS: BMI 26.2
[2024-03-22] MEDS ORDERED: ACETAMINOPHEN 325 MG TABLET (FP) PO PRN (16:54)
[2024-03-22] MEDS ORDERED: POLYETHYLENE GLYCOL (HEALTHYLAX) 3350 17 GM PACKET PO PRN (16:54)
[2024-03-22] MEDS ORDERED: BENZONATATE 200 MG CAPSULE PO PRN (16:54)
[2024-03-22] MEDS ORDERED: DICYCLOMINE HCL 10 MG CAPSULE PO PRN (16:54)
[2024-03-22] MEDS ORDERED: guaiFENesin 600 MG TABLET.ER (FP) PO PRN (16:54)
[2024-03-22] MEDS ORDERED: IBUPROFEN 400 MG TABLET (FP) PO PRN (16:54)
[2024-03-22] MEDS ORDERED: BISMUTH SUBSALICYLATE 524 MG/30 ML PO PRN (16:54)
[2024-03-22] MEDS ORDERED: NALOXONE HCL 0.4 MG/ML VIAL IM PRN (16:54)
[2024-03-22] MEDS ORDERED: MAGNESIUM HYDROX 2400MG/30ML ORAL SUSPENSION 30 ML CUP PO PRN (16:54)
[2024-03-22] MEDS ORDERED: BENZOCAINE/MENTHOL (CHLORASEPTIC ) LOZENGE MM PRN (16:54)
[2024-03-22] MEDS ORDERED: NALOXONE HCL (KLOXXADO) 8 MG SPRAY NS PRN (16:54)
[2024-03-22] MEDS ORDERED: chlordiazePOXIDE HCL 25 MG CAPSULE ONE (17:23)
[2024-03-22] MEDS ORDERED: levETIRAcetam 500 MG TABLET (FP) PO ONE (17:23)
[2024-03-22] MEDS: chlordiazePOXIDE HCL 25 MG CAPSULE PO SCH (17:29)
[2024-03-22] MEDS: levETIRAcetam 500 MG TABLET (FP) PO ONE (17:29)
[2024-03-22] MEDS: ONDANSETRON *ODT* 4 MG TABLET SL PRN (17:59)
[2024-03-22] MEDS: hydrOXYzine PAMOATE 25 MG CAPSULE (FP) PO PRN (17:59)
[2024-03-22] MEDS: IBUPROFEN 600 MG TABLET (FP) PO PRN (17:59)
[2024-03-22] MEDS: MELATONIN 5 MG TABLETS PO SCH (22:30)
[2024-03-22] MEDS: THIAMINE 100 MG TABLET PO SCH (22:31)
[2024-03-22] MEDS: levETIRAcetam 500 MG TABLET (FP) PO SCH (22:31)
[2024-03-23] MEDS: METHOCARBAMOL 500 MG TABLET PO PRN (05:45)
[2024-03-23] MEDS: chlordiazePOXIDE HCL 25 MG CAPSULE PO PRN (08:40)
[2024-03-23] MEDS: PRENATAL VITAMINS W/ FOLIC ACID TABLET (FP) PO SCH (09:56)
[2024-03-23] MEDS: amLODIPine BESYLATE 5 MG TABLET (FP) PO SCH (10:24)
[2024-03-23 12:05] LABS: HEMATOCRIT 39.4 % (32.4-45.2); HEMOGLOBIN 13.5 GM/dL (10.7-15.3); MCH 30.8 pg (25.7-33.7); MCHC 34.3 g/dl (32.0-36.0); MEAN CELL VOLUME 89.8 fl (80-96); MEAN PLT VOLUME 9.2 fl (7.5-11.1); PLATELET COUNT 141 10^3/uL (134-434); RBC 4.39 M/mm3 (3.60-5.2); RDW 15.4 % (11.6-15.6); WHITE BLOOD COUNT 6.5 K/mm3 (4.0-10.0)
[2024-03-23 12:16] LABS: CHLORIDE 98 mmol/L (98-107); POTASSIUM 3.2 mmol/L (3.5-5.1); SODIUM 134 mmol/L (136-145)
[2024-03-23 12:30] LABS: CALCIUM 9.4 mg/dL (8.5-10.1)
[2024-03-23 12:31] LABS: ALBUMIN 3.6 g/dl (3.4-5.0); ANION GAP 8 mmol/L (4-13); CO2 29 mmol/L (21-32); GLUCOSE,RANDOM 144 mg/dL (74-106)
[2024-03-23 12:34] LABS: CREATININE 1.1 mg/dL (0.55-1.3); SGOT/AST 29 U/L (15-37); SGPT/ALT 22 U/L (13-61)
[2024-03-23 12:36] LABS: TOT PROT 6.9 g/dl (6.4-8.2)
[2024-03-23 12:37] LABS: ALK PHOS 106 U/L (45-117); BILIRUBIN,TOTAL 0.8 mg/dL (0.2-1)
[2024-03-23] MEDS: LOPERAMIDE HCL 2 MG CAPSULE PO PRN (13:14)
[2024-03-23] MEDS: POTASSIUM CHLORIDE ORAL LIQUID 20 MEQ/15 ML PO ONE (18:10)
[2024-03-23] MEDS: MAG HYDROX/AL HYDROX/SIMETH 30 ML UNIT-DOSE CUP PO PRN (18:14)
[2024-03-23] MEDS: QUEtiapine FUMARATE 100 MG TABLET (FP) PO SCH (21:01)
[2024-03-24] MEDS: chlordiazePOXIDE HCL 25 MG CAPSULE PO SCH (05:47)
[2024-03-24 12:17] LABS: POTASSIUM 3.9 mmol/L (3.5-5.1)
[2024-03-24 12:18] LABS: CALCIUM 9.4 mg/dL (8.5-10.1)
[2024-03-24 12:19] LABS: BLOOD UREA NITROGEN 8.5 mg/dL (7-18)
[2024-03-24] MEDS: GABAPENTIN 300 MG CAPSULE PO SCH (13:23)
[2024-03-25] MEDS: chlordiazePOXIDE HCL 10 MG CAPSULE PO PRN (00:49)
[2024-03-25] MEDS: chlordiazePOXIDE HCL 10 MG CAPSULE PO SCH (05:36)
[2024-03-26] MEDS: chlordiazePOXIDE HCL 10 MG CAPSULE PO SCH (05:52)
[2024-03-26] MEDS ORDERED: chlordiazePOXIDE 5 MG CAPSULE ONE (17:35)
[2024-03-27] MEDS: chlordiazePOXIDE HCL 10 MG CAPSULE PO ONE (05:32)
[2024-03-27 06:41] VITALS: PULSE 90
[2024-03-27 09:50] VITALS: BP 128/62; RESP 18; TEMP 97.8
== END 2024-03-27 10:55 | disposition home or self-care (01) | DRG 774 ==
LOC: YASAS 13:14 → Y6N 16:48
PROVIDERS: ADMIT Allergy & Immunology; ATTEND Surgery
PROC: HZ2ZZZZ Detoxification Services for Substance Abuse Treatment (ICD-10-PCS; principal; 2024-03-22)
DX: F10.230 Alcohol dependence with withdrawal, uncomplicated (principal); F14.20 Cocaine dependence, uncomplicated; F12.20 Cannabis dependence, uncomplicated; F25.1 Schizoaffective disorder, depressive type; F32.9 Major depressive disorder, single episode, unspecified; I10 Essential (primary) hypertension; E87.6 Hypokalemia; G40.909 Epilepsy, unspecified, not intractable, without status epilepticus; R73.03 Prediabetes; Z87.891 Personal history of nicotine dependence
CPT/HCPCS: 36415; 80048; 80053; 80305; 80307; 81025; 82140; 82962; 85027; 86780; 93005; 93010; Q0162

== ENCOUNTER 2024-09-03 13:08 | Inpatient (IN) | payer OTHER ==
[2024-09-03] MEDS ORDERED: chlordiazePOXIDE HCL 25 MG CAPSULE ONE ×2 (14:31→16:43)
[2024-09-03] MEDS ORDERED: levETIRAcetam 500 MG TABLET (FP) PO ONE (14:31)
[2024-09-03] MEDS: levETIRAcetam 500 MG TABLET (FP) PO ONE (14:33)
[2024-09-03] MEDS ORDERED: IBUPROFEN 600 MG TABLET (FP) PO PRN (14:33)
[2024-09-03] MEDS ORDERED: guaiFENesin 600 MG TABLET.ER (FP) PO PRN (14:33)
[2024-09-03] MEDS ORDERED: ACETAMINOPHEN 325 MG TABLET (FP) PO PRN (14:33)
[2024-09-03] MEDS: chlordiazePOXIDE HCL 25 MG CAPSULE PO ONE (14:33)
[2024-09-03] MEDS ORDERED: MAG HYDROX/AL HYDROX/SIMETH 30 ML UNIT-DOSE CUP PO PRN (14:33)
[2024-09-03] MEDS ORDERED: BISMUTH SUBSALICYLATE 262 MG/15 ML BTL PO PRN (14:33)
[2024-09-03] MEDS ORDERED: NICOTINE POLACRILEX 2 MG GUM BUC PRN (14:33)
[2024-09-03] MEDS ORDERED: BENZOCAINE/MENTHOL (CHLORASEPTIC ) LOZENGE MM PRN (14:33)
[2024-09-03] MEDS ORDERED: LOPERAMIDE HCL 2 MG CAPSULE PO PRN (14:33)
[2024-09-03] MEDS ORDERED: BENZONATATE 200 MG CAPSULE PO PRN (14:33)
[2024-09-03] MEDS ORDERED: DICYCLOMINE HCL 10 MG CAPSULE PO PRN (14:33)
[2024-09-03] MEDS ORDERED: POLYETHYLENE GLYCOL (HEALTHYLAX) 3350 17 GM PACKET PO PRN (14:33)
[2024-09-03] MEDS ORDERED: MAGNESIUM HYDROX 2400MG/30ML ORAL SUSPENSION 30 ML CUP PO PRN (14:33)
[2024-09-03] MEDS ORDERED: ONDANSETRON *ODT* 4 MG TABLET SL PRN (14:33)
[2024-09-03] MEDS ORDERED: IBUPROFEN 400 MG TABLET (FP) PO PRN (14:33)
[2024-09-03] MEDS: chlordiazePOXIDE HCL 25 MG CAPSULE PO SCH (16:46)
[2024-09-03] MEDS: hydrOXYzine PAMOATE 25 MG CAPSULE (FP) PO PRN (18:56)
[2024-09-03] MEDS: chlordiazePOXIDE HCL 25 MG CAPSULE PO PRN (20:05)
[2024-09-03] MEDS: THIAMINE 100 MG TABLET PO SCH (22:20)
[2024-09-03] MEDS: MELATONIN 5 MG TABLETS PO SCH (22:20)
[2024-09-03] MEDS: levETIRAcetam 500 MG TABLET (FP) PO SCH (22:21)
[2024-09-03] MEDS: METHOCARBAMOL 500 MG TABLET PO PRN (22:21)
[2024-09-04] MEDS: PRENATAL VITAMINS W/ FOLIC ACID TABLET (FP) PO SCH (09:44)
[2024-09-04] MEDS: amLODIPine BESYLATE 5 MG TABLET (FP) PO SCH (09:44)
[2024-09-04] MEDS: GABAPENTIN 300 MG CAPSULE PO SCH (10:13)
[2024-09-04] MEDS: QUEtiapine FUMARATE 100 MG TABLET (FP) PO SCH (10:13)
[2024-09-04 12:57] LABS: HEMOGLOBIN 14.9 GM/dL (10.7-15.3); MCH 30.5 pg (25.7-33.7); MCHC 33.8 g/dl (32.0-36.0); MEAN CELL VOLUME 90.2 fl (80-96); MEAN PLT VOLUME 9.2 fl (7.5-11.1); PLATELET COUNT 275 10^3/uL (134-434); RBC 4.88 M/mm3 (3.60-5.2); RDW 14.7 % (11.6-15.6); WHITE BLOOD COUNT 8.1 K/mm3 (4.0-10.0)
[2024-09-04 13:03] LABS: POTASSIUM 3.5 mmol/L (3.5-5.1)
[2024-09-04 13:54] LABS: BLOOD UREA NITROGEN 10.1 mg/dL (7-18)
[2024-09-04 13:56] LABS: CALCIUM 9.5 mg/dL (8.5-10.1)
[2024-09-04 14:00] LABS: CREATININE 0.8 mg/dL (0.55-1.3); HIV INTERPRETATION NEGATIVE (NEGATIVE)
[2024-09-04 14:02] LABS: BILIRUBIN,TOTAL 0.8 mg/dL (0.2-1); TOT PROT 7.5 g/dl (6.4-8.2)
[2024-09-05] MEDS: chlordiazePOXIDE HCL 25 MG CAPSULE PO SCH (05:49)
[2024-09-06] MEDS: chlordiazePOXIDE HCL 10 MG CAPSULE PO SCH (05:42)
[2024-09-06] MEDS: chlordiazePOXIDE HCL 10 MG CAPSULE PO PRN (14:38)
[2024-09-06] MEDS: hydrOXYzine PAMOATE 25 MG CAPSULE (FP) PO PRN (15:49)
[2024-09-07] MEDS: chlordiazePOXIDE HCL 10 MG CAPSULE PO SCH (05:39)
[2024-09-07] MEDS: chlordiazePOXIDE 5 MG CAPSULE PO ONE (11:59)
[2024-09-07] MEDS: NALOXONE (NYS OPIOID OVERDOSE PROGRAM) 4 MG/0.1 ML SPRAY NS SCH (14:41)
[2024-09-07] MEDS: hydrOXYzine PAMOATE 25 MG CAPSULE (FP) PO PRN (14:54)
[2024-09-07 21:20] VITALS: RESP 18; TEMP 97.7
[2024-09-08] MEDS: chlordiazePOXIDE HCL 10 MG CAPSULE PO ONE (05:38)
[2024-09-08 06:33] VITALS: PULSE 90
[2024-09-08 09:18] VITALS: BP 123/85
== END 2024-09-08 09:40 | disposition home or self-care (01) | DRG 775 ==
LOC: EDSEX → YASAS 13:08 → Y6N 16:17
PROVIDERS: ADMIT Allergy & Immunology; ATTEND Surgery
PROC: HZ2ZZZZ Detoxification Services for Substance Abuse Treatment (ICD-10-PCS; principal; 2024-09-03)
DX: F10.230 Alcohol dependence with withdrawal, uncomplicated (principal); F17.210 Nicotine dependence, cigarettes, uncomplicated; F25.0 Schizoaffective disorder, bipolar type; F33.1 Major depressive disorder, recurrent, moderate; F10.282 Alcohol dependence with alcohol-induced sleep disorder; F10.24 Alcohol dependence with alcohol-induced mood disorder; G40.909 Epilepsy, unspecified, not intractable, without status epilepticus; I10 Essential (primary) hypertension
CPT/HCPCS: 36415; 80053; 80305; 81025; 85027; 86803; 87389